=== PATIENT | female | born 1975 | race Hispanic/Latino ===

== ENCOUNTER 2018-12-17 20:57 | Inpatient (IN) | payer SELFPAY ==
[~2018-12-17] VITALS: Ht 162.6 cm; Wt 136.3 kg
[2018-12-17] MEDS ORDERED: SODIUM CHLORIDE 0.9% 1000ML 1,000 ML IV ONE (21:15)
[2018-12-17 21:29] LABS: BASOPHILS % (AUTO) 0.9 % (0.0-5.0); EOSINOPHILS % (AUTO) 1.8 % (0.0-8.0); LYMPHOCYTES % (AUTO) 9.9 % (21.0-51.0); MEAN CORPUSCULAR HEMOGLOBIN 13.3 pg (27.0-33.0); MEAN CORPUSCULAR HGB CONC 25.4 g/dL (32.0-36.0); MEAN CORPUSCULAR VOLUME 52.3 fL (79-99); NEUTROPHILS % (AUTO) 82.4 % (40.0-77.0); NUCLEATED RED BLOOD CELLS 2.8 % (0.0-0.19); PLATELET COUNT (AUTO) 449 K/uL (130-400); RED BLOOD CELL COUNT(AUTO) 3.03 MIL/uL (4.00-5.50); RED CELL DISTRIBUTION WIDTH 24.1 % (11.0-15.5); WHITE BLOOD COUNT (AUTO) 18.4 K/uL (4.8-10.8)
[2018-12-17 21:40] LABS: APPEARANCE,URINE Clear (CLEAR); BILIRUBIN,URINE Negative (NEGATIVE); COLOR,URINE Yellow (YELLOW); GLUCOSE, URINE (UA) Negative (NEGATIVE); KETONES,URINE Negative (NEGATIVE); LEUKOCYTE ESTERASE ,URINE Small (NEGATIVE); NITRATE,URINE Negative (NEGATIVE); OCCULT BLOOD,URINE Moderate (NEGATIVE); PROTEIN,URINE POS 2+ (NEGATIVE)
[2018-12-17 21:41] LABS: CREATININE 1.1 mg/dL (0.5-1.5); POTASSIUM 3.8 mmol/L (3.5-5.1)
[2018-12-17 21:44] LABS: INR 0.92 (0.85-1.15); PARTIAL THROMBOPLASTIN TIME 23.3 SEC (26.3-35.5); PROTHROMBIN TIME 9.7 SEC (9.6-11.6)
[2018-12-17 21:45] LABS: HEMATOCRIT 15.9 % (36-48)
[2018-12-17 21:46] LABS: ALBUMIN 2.9 g/dL (3.5-5.0); BILIRUBIN,TOTAL 0.7 mg/dL (0.2-1.0)
[2018-12-17 21:47] LABS: HCG,QUAL RESULT NEGATIVE (NEGATIVE)
[2018-12-17] MEDS ORDERED: DIPHENHYDRAMINE HCL 25 MG CAPSULE ONE (21:48)
[2018-12-17 22:03] LABS: BACTERIA,URINE Few /HPF (None Seen); SQUAMOUS EPITHELIAL CELL,UR Few /HPF (0-2)
[2018-12-17] MEDS ORDERED: SODIUM CHLORIDE 0.9% 500ML 500 ML IV ONE (23:24)
[2018-12-17] MEDS: SODIUM CHLORIDE 0.9% 1000ML 1,000 ML IV SCH (23:25)
[2018-12-17] MEDS ORDERED: ACETAMINOPHEN 325 MG TAB PO PRN (23:30)
[2018-12-17] MEDS ORDERED: ONDANSETRON HCL 4 MG/2 ML VIAL IV PRN (23:30)
[2018-12-18 03:00] VITALS: BP 160/88
[2018-12-18 06:16] LABS: BASOPHILS % (AUTO) 1.2 % (0.0-5.0); EOSINOPHILS % (AUTO) 2.5 % (0.0-8.0); LYMPHOCYTES % (AUTO) 9.3 % (21.0-51.0); MEAN CORPUSCULAR HEMOGLOBIN 15.9 pg (27.0-33.0); MEAN CORPUSCULAR HGB CONC 27.5 g/dL (32.0-36.0); MEAN CORPUSCULAR VOLUME 57.8 fL (79-99); MONOCYTES % (AUTO) 6.1 % (3.0-13.0); NEUTROPHILS % (AUTO) 80.9 % (40.0-77.0); NUCLEATED RED BLOOD CELLS 0.6 % (0.0-0.19); PLATELET COUNT (AUTO) 290 K/uL (130-400); RED BLOOD CELL COUNT(AUTO) 3.05 MIL/uL (4.00-5.50); RED CELL DISTRIBUTION WIDTH 34.5 % (11.0-15.5); WHITE BLOOD COUNT (AUTO) 13.1 K/uL (4.8-10.8)
[2018-12-18 06:39] LABS: INR 0.95 (0.85-1.15)
[2018-12-18 06:43] LABS: HEMATOCRIT 17.6 % (36-48)
[2018-12-18 07:10] LABS: HEMATOCRIT 18.4 % (36-48)
[2018-12-18] MEDS ORDERED: SODIUM CHLORIDE 0.9% 250 ML IV ONE (08:00)
--- NOTE | 2018-12-18 08:07 | NUR ---
TRANSFUSED 1 UNIT OF RBC. PATIENT TOLERATED WELL. NO ADVERSE REACTION. VITAL SIGNS STABLE.
[2018-12-18 08:39] VITALS: BP 146/75
[2018-12-18] MEDS: FAMOTIDINE/PF 20 MG/2 ML VIAL IV SCH ×2 (09:00→21:09)
[2018-12-18] MEDS: SODIUM CHLORIDE 0.9% 1000ML 1,000 ML IV SCH (09:25)
--- NOTE | 2018-12-18 11:17 | NUR ---
TRANFUSED 1 UNIT OF RBC. PATIENT TOLERATED WELL. VITAL SIGN STABLE. NO ADVERSE REACTION.
[2018-12-18] MEDS ORDERED: COMPOUND IV MISC 1 EACH IVSOLN MISC PRN (13:15)
[2018-12-18 13:34] VITALS: BP 152/82
[2018-12-18 15:39] LABS: CREATININE 0.9 mg/dL (0.5-1.5); POTASSIUM 4.1 mmol/L (3.5-5.1)
[2018-12-18 15:43] LABS: ALBUMIN 2.8 g/dL (3.5-5.0); BILIRUBIN,TOTAL 2.3 mg/dL (0.2-1.0); TOTAL PROTEIN, SERUM 6.6 g/dL (6.0-8.3)
[2018-12-18 16:16] LABS: BASOPHILS % (AUTO) 1.3 % (0.0-5.0); EOSINOPHILS % (AUTO) 2.1 % (0.0-8.0); HEMATOCRIT 22.5 % (36-48); LYMPHOCYTES % (AUTO) 9.7 % (21.0-51.0); MEAN CORPUSCULAR HGB CONC 29.6 g/dL (32.0-36.0); MEAN CORPUSCULAR VOLUME 64.5 fL (79-99); MONOCYTES % (AUTO) 6.6 % (3.0-13.0); NEUTROPHILS % (AUTO) 80.3 % (40.0-77.0); NUCLEATED RED BLOOD CELLS 0.8 % (0.0-0.19); PLATELET COUNT (AUTO) 259 K/uL (130-400); RED BLOOD CELL COUNT(AUTO) 3.49 MIL/uL (4.00-5.50); RED CELL DISTRIBUTION WIDTH 36.7 % (11.0-15.5); WHITE BLOOD COUNT (AUTO) 12.9 K/uL (4.8-10.8)
--- NOTE | 2018-12-18 17:20 | NUR ---
DR. PINEDA REPORTED CRITICAL VALUES OF HGB 6.[address] PINEDA. NEW ORDERS RECEIVED AND CARRIED OUT. NO BLOOD TRANSFUSIONS FOR NOW. WILL WAIT FOR TOMORROW'S CBC. CONTINUE TO MONITOR PATIENT CLOSELY.
[2018-12-18 17:58] VITALS: BP 132/87
[2018-12-18 19:45] VITALS: BP 135/80
[2018-12-18 23:50] VITALS: BP 134/84
[2018-12-19] VITALS (25 sets, daily range): BP systolic 116–145; BP diastolic 55–84
[2018-12-19 05:48] LABS: HEMATOCRIT 23.9 % (36-48); MEAN CORPUSCULAR HEMOGLOBIN 19.4 pg (27.0-33.0); MEAN CORPUSCULAR VOLUME 64.6 fL (79-99); NUCLEATED RED BLOOD CELLS 0.8 % (0.0-0.19); PLATELET COUNT (AUTO) 284 K/uL (130-400); RED CELL DISTRIBUTION WIDTH 37.2 % (11.0-15.5); WHITE BLOOD COUNT (AUTO) 12.4 K/uL (4.8-10.8)
[2018-12-19 05:55] LABS: CREATININE 0.9 mg/dL (0.5-1.5); POTASSIUM 3.6 mmol/L (3.5-5.1)
[2018-12-19] MEDS ORDERED: LACTATED RINGERS 1000ML 1,000 ML IV ONE (08:02)
[2018-12-19] MEDS ORDERED: DEXAMETHASONE SOD PHOSPHATE 10MG/ML 1ML VIAL ONE (08:49)
[2018-12-19] MEDS ORDERED: PROPOFOL 10 MG/ML 20ML VIAL IV ONE ×2 (08:49→09:03)
[2018-12-19] MEDS ORDERED: MIDAZOLAM HCL 1 MG/ML 2ML VIAL ONE (08:49)
[2018-12-19] MEDS ORDERED: ONDANSETRON HCL 4 MG/2 ML VIAL ONE (08:49)
[2018-12-19] MEDS ORDERED: LIDOCAINE PF 2% 5ML ABBOJECT ONE (08:49)
[2018-12-19] MEDS ORDERED: FENTANYL CITRATE PF 50 MCG/1 ML 2ML VIAL ONE (08:50)
[2018-12-19] MEDS ORDERED: MEPERIDINE-PF 25 MG/ML SYG ONE ×2 (09:51→10:00)
[2018-12-19] MEDS ORDERED: KETOROLAC TROMETHAMINE 30MG/ML ONE (10:26)
[2018-12-19] MEDS: IRON SUCROSE COMPLEX 200 MG in SODIUM CHLORIDE 0.9% 50 ML IV SCH (12:07)
[2018-12-19] MEDS: CYANOCOBALAMIN (VITAMIN B-12) 1,000 MCG TABLET PO SCH (12:07)
[2018-12-19] MEDS: FOLIC ACID 1 MG TABLET PO SCH (12:07)
[2018-12-19] MEDS: FAMOTIDINE/PF 20 MG/2 ML VIAL IV SCH ×2 (12:07→21:35)
--- NOTE | 2018-12-19 17:00 | NUR ---
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 PLAN HOME Addendum: 12/19/18 at 1758 by FLO UNDERWOOD RN CM Amended: Links added.
[2018-12-20 00:30] VITALS: BP 154/85
[2018-12-20] MEDS: SODIUM CHLORIDE 0.9% 1000ML 1,000 ML IV SCH (01:32)
[2018-12-20 04:32] VITALS: BP 131/73
[2018-12-20 05:10] LABS: HEMATOCRIT 21.2 % (36-48); MEAN CORPUSCULAR HEMOGLOBIN 20.1 pg (27.0-33.0); MEAN CORPUSCULAR HGB CONC 30.9 g/dL (32.0-36.0); NUCLEATED RED BLOOD CELLS 0.5 % (0.0-0.19); PLATELET COUNT (AUTO) 202 K/uL (130-400); RED BLOOD CELL COUNT(AUTO) 3.26 MIL/uL (4.00-5.50); RED CELL DISTRIBUTION WIDTH 37.6 % (11.0-15.5); WHITE BLOOD COUNT (AUTO) 9.8 K/uL (4.8-10.8)
[2018-12-20 07:00] VITALS: BP 118/62
[2018-12-20] MEDS: FAMOTIDINE/PF 20 MG/2 ML VIAL IV SCH ×2 (09:26→21:08)
[2018-12-20] MEDS: FOLIC ACID 1 MG TABLET PO SCH (09:26)
[2018-12-20] MEDS: CYANOCOBALAMIN (VITAMIN B-12) 1,000 MCG TABLET PO SCH (09:27)
[2018-12-20] MEDS: IRON SUCROSE COMPLEX 200 MG in SODIUM CHLORIDE 0.9% 50 ML IV SCH (09:28)
[2018-12-20 12:00] VITALS: BP 140/66
[2018-12-20 16:00] VITALS: BP 145/85
[2018-12-20 17:36] LABS: HEMATOCRIT 27.1 % (36-48)
--- NOTE | 2018-12-20 18:00 | NUR ---
TRANSFUSE ONE UNIT OF PRBC'S. PATIENT STABLE AND TOLERATED WITHOUT INCIDENT.
[2018-12-20 19:38] VITALS: BP 141/71
[2018-12-20] MEDS ORDERED: GUAIFENESIN SUGAR-FREE 100 MG/5 ML UDCUP PO PRN (22:45)
[2018-12-20] MEDS ORDERED: GUAIFENESIN-DM 200/20 MG 10 ML ONE (22:47)
[2018-12-21 00:33] VITALS: BP 136/80
[2018-12-21 04:35] LABS: HEMATOCRIT 24.1 % (36-48); MEAN CORPUSCULAR HEMOGLOBIN 20.8 pg (27.0-33.0); MEAN CORPUSCULAR HGB CONC 30.7 g/dL (32.0-36.0); MEAN CORPUSCULAR VOLUME 67.7 fL (79-99); NUCLEATED RED BLOOD CELLS 0.2 % (0.0-0.19); PLATELET COUNT (AUTO) 188 K/uL (130-400); RED BLOOD CELL COUNT(AUTO) 3.57 MIL/uL (4.00-5.50); RED CELL DISTRIBUTION WIDTH 37.8 % (11.0-15.5); WHITE BLOOD COUNT (AUTO) 9.8 K/uL (4.8-10.8)
[2018-12-21 04:40] VITALS: BP 144/75
[2018-12-21 08:19] VITALS: BP 143/87
[2018-12-21] MEDS: FAMOTIDINE/PF 20 MG/2 ML VIAL IV SCH (09:34)
[2018-12-21] MEDS: CYANOCOBALAMIN (VITAMIN B-12) 1,000 MCG TABLET PO SCH (09:35)
[2018-12-21] MEDS: FOLIC ACID 1 MG TABLET PO SCH (09:35)
[2018-12-21] MEDS: IRON SUCROSE COMPLEX 200 MG in SODIUM CHLORIDE 0.9% 50 ML IV SCH (09:41)
[2018-12-21 11:47] VITALS: BP 99/39
--- NOTE | 2018-12-21 16:15 | NUR ---
DISCHARGE INSTRUCTIONS GIVEN AND PATIENT VERBALIZED UNDERSTANDING, IV REMOVED WITH CATHETER INTACT, PRESSURE HELD TILL BLEEDING STOPPED AND SITE DRESSED WITH PRESSURE DRESSING. PATIENT INSTRUCTED IF SHE HAS NOT HEARD BACK FROM DR SOLORIO OFFICE BY MONDAY TO CALL THE OFFICE FOR APPOINTMENT PHONE NUMBER.
--- NOTE | 2018-12-21 17:44 | NUR ---
Pt finally d/c to home, will be following up with OBGYN as part of care plan earlier discussed.
== END 2018-12-21 16:20 | disposition home or self-care (01) | DRG 744 ==
LOC: EDH 20:57 → EDHIP 20:58 → OBSVTOIN 20:58 → 3BH 12-18 02:29
PROVIDERS: ADMIT Internal Medicine; ATTEND Internal Medicine
PROC: 30233N1 Transfusion of Nonautologous Red Blood Cells into Peripheral Vein, Percutaneous Approach (ICD-10-PCS; 2018-12-17)
PROC: 0UDB8ZZ Extraction of Endometrium, Via Natural or Artificial Opening Endoscopic (ICD-10-PCS; principal; 2018-12-19 08:53)
DX: N92.1 Excessive and frequent menstruation with irregular cycle (principal); Z68.43 Body mass index [BMI] 50.0-59.9, adult; D50.9 Iron deficiency anemia, unspecified; E66.01 Morbid (severe) obesity due to excess calories; D47.3 Essential (hemorrhagic) thrombocythemia
CPT/HCPCS: 36415; 36430; 71045; 76856; 80048; 80053; 81001; 81025; 82270; 85014; 85018; 85025; 85027; 85060; 85610; 85730; 86156; 86850; 86900; 86901; 86922; 88305; A4351; A4355; G0378; J1100; J1756; J1885; J2001; J2175; J2250; J2405; J2704; J3010; J3490; J7030; J7040; J7120; P9016; Q0163